=== PATIENT | female | born 1965 | race Caucasian/White ===

== ENCOUNTER → 2022-08-06 09:32 | Outpatient (BNVA) | payer OTHER, SELFPAY | PROVIDERS: PCP Registered Nurse; Visit Provider Registered Nurse | DX: Z78.9 Other specified health status (principal); R53.83 Other fatigue; Z13.1 Encounter for screening for diabetes mellitus; G47.00 Insomnia, unspecified | CPT/HCPCS: 80053; 80061; 82607; 83036; 84443; 85025 ==

== ENCOUNTER → 2022-08-22 09:05 | Outpatient (BNVA) | payer OTHER, SELFPAY | PROVIDERS: PCP Registered Nurse; Referring Provider Registered Nurse; Visit Provider Student in an Organized Health Care Education/Training Program | DX: S83.207A Unspecified tear of unspecified meniscus, current injury, left knee, initial encounter (principal); X58.XXXA Exposure to other specified factors, initial encounter | CPT/HCPCS: 73560; 73565 ==

== ENCOUNTER 2022-09-10 12:08 | Outpatient (CLI) | payer OTHER, SELFPAY ==
--- NOTE | 2022-09-10 11:00 | MR_ITS ---
WS: [id number] MRI LEFT KNEE NONCONTRAST TECHNIQUE: Axial PD, coronal PD fat sat, coronal PD, sagittal PD, and sagittal PD fat-sat images obta ined. CLINICAL INFORMATION: pain left knee COMPARISON: None. FINDINGS: Moderate suprapatellar effusion. Distal quadriceps and patella tendons are intact. Prepatellar and in frapatellar soft tissue edema. Tricompartmental arthritis LEFT knee worse medial joint compartment ACL and PCL appear intact. Mild chronic thinning of the ACL. Mucoid degeneration involving the ACL. L obulated popliteal cyst measuring 1.9 x 6.3 CM. Grade 2-3 chondromalacia involving the medial joint c ompartment. Degenerative subchondral edema involving the tibial plateau. No acute appearing medial me niscal tears. Diffuse blunting of the anterior horn lateral meniscus presumably due to prior meniscectomy. Normal p osterior horn lateral meniscus. Peripheral extrusion of the lateral meniscus. Normal lateral collateral ligament. Small amount of fluid and edema deep to the MCL compatible with g rade 1-2 injury appears intact. Moderate chondromalacia patella worse involving the lateral patella f acet MR/MR knee LT wo con* [id number] IMPRESSION: 1. Moderate suprapatellar effusion. 2. Mucoid degeneration of the ACL. ACL and PCL appear intact. 3. Diffuse blunting of the anterior horn lateral meniscus likely due to prior meniscectomy. Peripheral extrusion lateral meniscus. 4. Mild chronic thinning of the medial meniscus which appears intact. 5. Joint space narrowing worse medial joint compartment with subchondral edema in the tibial plateau. 6. Fluid and edema deep to the MCL compatible with grade 1-2 injury. MCL appea rs intact. LCL appears intact. 7. Lobulated popliteal cyst measuring 1.9 x 6.3 CM. 8. Moderate chondromalacia patella worse involving the lateral patella facet Outbridge grading: grade III: partial-thickness cartilage loss with focal ulcer ation
== END 2022-09-10 12:09 | disposition home or self-care (01) ==
PROVIDERS: PCP Registered Nurse; Visit Provider Student in an Organized Health Care Education/Training Program
DX: S83.207A Unspecified tear of unspecified meniscus, current injury, left knee, initial encounter (principal); X58.XXXA Exposure to other specified factors, initial encounter; M25.462 Effusion, left knee; M71.22 Synovial cyst of popliteal space [Baker], left knee; M22.42 Chondromalacia patellae, left knee
CPT/HCPCS: 73721

== ENCOUNTER 2022-09-17 07:52 | Outpatient (CLI) | payer OTHER, SELFPAY ==
--- NOTE | 2022-09-17 08:12 | MM_ITS ---
WS: [id number] VIEWS: MLO and CC views both breasts. 3D digital tomosynthesis is also included in this exam. No priors. Findings: There was no sign of mass, architectural distortion or suspicious calcification in either breast. Th e breasts are heterogeneously dense which may obscure small masses MM/[place] [id number] Impression: BI-RADS: 2-Benign finding. FOLLOW-UP: 1 Year Follow-up This mammogram was also analyzed by the Computer Aided Detection System [employer].
== END 2022-09-17 07:53 | disposition home or self-care (01) ==
PROVIDERS: PCP Registered Nurse; Visit Provider Registered Nurse
DX: Z12.31 Encounter for screening mammogram for malignant neoplasm of breast (principal)
CPT/HCPCS: 77063; 77067

== ENCOUNTER → 2022-11-19 09:28 | Outpatient (BNVA) | payer OTHER, SELFPAY | PROVIDERS: PCP Registered Nurse; Visit Provider Registered Nurse | DX: E53.8 Deficiency of other specified B group vitamins (principal) | CPT/HCPCS: 82607 ==

== ENCOUNTER → 2024-02-02 11:00 | Outpatient (BNVA) | payer BC, SELFPAY | PROVIDERS: PCP Registered Nurse; Visit Provider Registered Nurse | DX: Z01.818 Encounter for other preprocedural examination (principal); I10 Essential (primary) hypertension; F51.01 Primary insomnia | CPT/HCPCS: 80053; 80061; 85025 ==

== ENCOUNTER → 2024-03-03 15:17 | Outpatient (BNVA) | payer BC, SELFPAY | PROVIDERS: PCP Registered Nurse; Visit Provider Podiatrist Foot & Ankle Surgery | DX: G57.52 Tarsal tunnel syndrome, left lower limb (principal) | CPT/HCPCS: 73630 ==

== ENCOUNTER 2024-04-05 09:39 | Outpatient (CLI) | payer BC, SELFPAY | END 2024-04-05 09:40 | disposition home or self-care (01) | LOC: SPT 09:40 | PROVIDERS: PCP Registered Nurse; Visit Provider Podiatrist Foot & Ankle Surgery | DX: Z46.89 Encounter for fitting and adjustment of other specified devices (principal); M19.072 Primary osteoarthritis, left ankle and foot | CPT/HCPCS: L4361 ==